=== PATIENT | male | born 1940 | race Caucasian/White ===

== ENCOUNTER → 2018-08-13 | Outpatient (CLI) | payer OTHER ==
[~2018-08-13] MED LIST: ISOVUE-M 300 61% 15ML VIAL (Q9967) As Ordered; LIDOCAINE 1% MDV 20ML VIAL As Ordered
== END ==
LOC: M RADPRO 08:25
DX: M51.36 Other intervertebral disc degeneration, lumbar region (principal); M96.1 Postlaminectomy syndrome, not elsewhere classified; M54.16 Radiculopathy, lumbar region; M54.5 Low back pain
CPT/HCPCS: 62284

== ENCOUNTER 2019-01-09 12:59 | Emergency (ER) | payer OTHER ==
[~2019-01-09] VITALS: Ht 175.3 cm; Wt 86.4 kg
[2019-01-09] MEDS ORDERED: PROP150T PO (13:15)
[2019-01-09] MEDS ORDERED: METF500T13 PO (13:15)
[2019-01-09] MEDS ORDERED: ELIQ5TAB PO (13:15)
[2019-01-09] MEDS ORDERED: PRAV40TA2 PO (13:15)
[2019-01-09] MEDS ORDERED: BENA10TA PO (13:15)
[2019-01-09] MEDS ORDERED: CARV6.25 PO (13:15)
[2019-01-09] MEDS ORDERED: RANI150T14 PO (13:15)
[2019-01-09 13:43] LABS: BASO # 0.1 10^3/uL (0.0-0.2); BASO % 0.7 % (0.0-1.0); EOS # 0.2 10^3/uL (0.0-0.50); EOS % 2.6 % (0.0-3.0); HEMATOCRIT 38.3 % (42.0-52.0); HEMOGLOBIN 12.3 g/dl (13.5-17.5); LYMPH # 1.1 10^3/uL (1.5-4.5); LYMPH % 15.7 % (24.0-44.0); MEAN CORPUSCULAR HEMOGLOBIN 28.3 pg (27.0-33.0); MEAN CORPUSCULAR HGB CONC 32.1 g/dl (32.0-36.5); MEAN CORPUSCULAR VOLUME 88.2 fl (80.0-96.0); MONO # 1.4 10^3/uL (0.0-0.8); MONO % 19.5 % (0.0-5.0); NEUTROPHILS # 4.3 10^3/uL (1.8-7.7); NEUTROPHILS % 61.1 % (36.0-66.0); PLATELET COUNT, AUTOMATED 196 10^3/uL (150-450); RED BLOOD COUNT 4.34 10^6/uL (4.30-6.10)
[2019-01-09 14:13] LABS: ALBUMIN 3.6 GM/DL (3.2-5.2); ALT/SGPT 16 U/L (12-78); BILIRUBIN,TOTAL 0.5 MG/DL (0.2-1.0); BLOOD UREA NITROGEN 15 MG/DL (7-18); CALCIUM LEVEL 9.2 MG/DL (8.8-10.2); CARBON DIOXIDE LEVEL 26 MEQ/L (21-32); CHLORIDE LEVEL 105 MEQ/L (98-107); CREATININE FOR GFR 1.47 MG/DL (0.70-1.30); GLOMERULAR FILTRATION RATE 49.3 (>42); GLUCOSE, FASTING 135 MG/DL (70-100); POTASSIUM SERUM 4.2 MEQ/L (3.5-5.1); SODIUM LEVEL 137 MEQ/L (136-145); TOTAL PROTEIN 6.8 GM/DL (6.4-8.2)
[2019-01-09 15:05] LABS: CK-MB VALUE MASS < 1.0 NG/ML (<3.6); CPK CREATINE PHOSPHOKINASE 40 U/L (39-308); TROPONIN I < 0.02 NG/ML (< 0.10)
--- NOTE | 2019-01-09 15:26 | REP ---
CT brain without contrast: History: Altered mental status. 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 The maxilla is edentulous. Bone window settings demonstrate an intact bony calvarium. Visualized paranasal sinuses are clear. Vascular calcification is noted in the distal carotid arteries bilaterally. Soft tissue window settings, there is moderate diffuse cerebral atrophy. Concordant ventricular enlargement is seen. There is a 1.1 cm focal hyperdensity in the left temporal lobe either in or adjacent to the temporal horn of the left lateral ventricle. This may be an acute hemorrhage. There is no evidence of infarction. No other intracranial hemorrhage is appreciated. There is no evidence of acute infarction. No extra-axial fluid collection, mass or midline shift. Impression: There is a 1.1 cm focal hemorrhage probably immediately adjacent to the temporal horn of the left lateral ventricle in the left temporal lobe consistent with a small parenchymal hemorrhage. Diffuse atrophy and vascular calcification noted. No other abnormality. This report was telephoned to the referring provider in the ED at the time of this dictation. Electronically Signed by Berto Yoder MD 01/09/2019 06:51 P
[2019-01-09 15:45] LABS: INR 1.44; PROTHROMBIN TIME 17.8 SECONDS (12.1-14.4)
[2019-01-09 15:46] LABS: PARTIAL THROMBOPLASTIN TIME 30.4 SECONDS (25.4-37.6)
[2019-01-09] MEDS ORDERED: PROTHROMBIN COMPLEX CONCENTRAT IV ONE (16:00)
[2019-01-09] MEDS ORDERED: [UNRECOGNIZED DRUG - OTHER] IV ONE (16:00)
[2019-01-09] MEDS ORDERED: PROTHROMBIN COMPLEX CONCEN IV ONE (16:00)
--- NOTE | 2019-01-09 16:00 | ECGEPIP ---
Stationary ECG Study [facility] - ED Test Date: 2019-01-09 Pat Name: SUZIE PHELPS Department: Room: - Gender: M Tawer: nakul : 1940 Requested By: Brandan Carvajal Order Number: [id number] Reading MD: Landon Chung Measurements Intervals [place] Rate: 60 P: 14 IN: 199 QRS: 7 QRSD: 107 T: 26 QT: 376 QTc: 378 Interpretive Statements SINUS RHYTHM Comparison tracing not on file Electronically Signed On 01-09-2019 16:00:41 EDT by Landon Chung
[2019-01-09 16:24] VITALS: BP 141/67
== END 2019-01-09 16:26 | disposition short-term general hospital (02) ==
LOC: M ED 12:59
DX: S06.350A Traumatic hemorrhage of left cerebrum without loss of consciousness, initial encounter (principal); R51 Headache; R11.0 Nausea; W01.198A Fall on same level from slipping, tripping and stumbling with subsequent striking against other object, initial encounter; Y92.098 Other place in other non-institutional residence as the place of occurrence of the external cause; I48.91 Unspecified atrial fibrillation; E11.9 Type 2 diabetes mellitus without complications; I10 Essential (primary) hypertension; Z87.442 Personal history of urinary calculi; Z91.048 Other nonmedicinal substance allergy status; Z79.899 Other long term (current) drug therapy; Z79.84 Long term (current) use of oral hypoglycemic drugs; Z79.01 Long term (current) use of anticoagulants
CPT/HCPCS: 70450; 80053; 82550; 82553; 84484; 85025; 85610; 85730; 93005; 93041; 94760; 96365; 99285; C9132

== ENCOUNTER 2020-04-21 13:34 | Emergency (ER) | payer OTHER ==
[~2020-04-21] VITALS: Ht 175.3 cm; Wt 86.5 kg
[~2020-04-21 13:34] MED LIST changes: +BENA10TA PO; +CARV6.25 PO; +ELIQ5TAB PO; -ISOVUE-M 300 61% 15ML VIAL (Q9967) As Ordered; -LIDOCAINE 1% MDV 20ML VIAL As Ordered; +METF500T13 PO; +PRAV40TA2 PO; +PROP150T PO; +RANI150T14 PO
[2020-04-21] MEDS ORDERED: ACETAMINOPHEN 325 MG TAB PO ONE (15:00)
--- NOTE | 2020-04-21 15:33 | REP ---
CT study of the cervical spine without contrast: History: Injury in a fall. Neck pain. No comparison study. Technique: Helical scanning is acquired and overlapping 2 mm high resolution axial images were generated and reviewed at bone and soft tissue window settings. Coronal and sagittal multiplanar re-formations images are generated. CT findings: There is no evidence of cervical spine element fracture. No skull base fracture is seen. Cervical vertebral body heights are preserved. Alignment is normal. Facet joints are normally aligned bilaterally at each cervical level on multiplanar re-formations images. There is no evidence of intraspinal or paraspinal hematoma. No extra vertebral abnormality is seen. The patient is status post ventral discectomy and fusion plating across the C5-6 disc level. There are mild degenerative disc changes at C4-5 and C6-7. Impression: Status post discectomy and fusion plating C5-6. Mild degenerative spondylosis changes. Otherwise negative CT study of the cervical spine without contrast. No fracture seen. Electronically Signed by Berto Yoder MD 04/21/2020 03:24 P
--- NOTE | 2020-04-21 15:50 | REP ---
Clinical: Trauma. Fall. Technique: AP and lateral views of the scapula. Findings: No obvious acute scapular fracture or dislocation is appreciated. Impression: No obvious scapular fracture noted. Suspected anterior right 5th rib fracture Electronically Signed by Ayaz Christianson MD 04/21/2020 03:41 P
--- NOTE | 2020-04-21 15:52 | REP ---
Clinical: Trauma. Fall. Technique: Frontal view of the chest with four views of the right hemithorax. Findings: Fracture along the posterior aspect of the right ninth rib and possible nondisplaced fracture along the anterolateral margin of the right fifth rib noted. No obvious pleural effusion or pneumothorax. Impression: Nondisplaced fractures involving the posterior aspect of the right ninth rib and anterolateral aspect of the right fifth rib. Electronically Signed by Ayaz Christianson MD 04/21/2020 03:43 P
[2020-04-21 16:39] VITALS: BP 129/61
== END 2020-04-21 16:41 | disposition home or self-care (01) ==
LOC: M ED 13:34
DX: S22.41XA Multiple fractures of ribs, right side, initial encounter for closed fracture (principal); W10.8XXA Fall (on) (from) other stairs and steps, initial encounter; E11.9 Type 2 diabetes mellitus without complications; I10 Essential (primary) hypertension; Z79.84 Long term (current) use of oral hypoglycemic drugs; Z98.1 Arthrodesis status; Z91.048 Other nonmedicinal substance allergy status; Z79.899 Other long term (current) drug therapy; I48.91 Unspecified atrial fibrillation; Y92.009 Unspecified place in unspecified non-institutional (private) residence as the place of occurrence of the external cause; Y93.9 Activity, unspecified; Y99.9 Unspecified external cause status

== ENCOUNTER → 2021-02-08 | Outpatient (REF) | payer OTHER ==
[2021-02-08 13:52] LABS: APPEARANCE, URINE CLEAR (CLEAR); BACTERIA, URINE AUTO NEGATIVE (NEGATIVE); BILIRUBIN, URINE AUTO NEGATIVE (NEGATIVE); BLOOD, URINE BLOOD 1+ (NEGATIVE); COLOR, URINE YELLOW (YELLOW); GLUCOSE, URINE (UA) AUTO 1+ mg/dL (NEGATIVE); KETONE, URINE AUTO NEGATIVE (NEGATIVE); LEUKOCYTE ESTERASE, URINE AUTO NEGATIVE (NEGATIVE); MUCUS, URINE SMALL (NEGATIVE); NITRITE, URINE AUTO NEGATIVE (NEGATIVE); PROTEIN, URINE AUTO 1+ mg/dL (NEGATIVE); RBC, URINE AUTO 0 /HPF (0-3); SPECIFIC GRAVITY URINE AUTO 1.014 (1.002-1.035); SQUAMOUS EPITHELIAL CELL UR AU 0 /HPF (0-6); UROBILINOGEN, URINE AUTO 0.2 mg/dL (0.0-2.0); WBC, URINE AUTO 1 /HPF (0-3)
== END ==
LOC: M SMT 12:41
PROVIDERS: ATTEND Nurse Practitioner Family
DX: R31.9 Hematuria, unspecified (principal)
CPT/HCPCS: 81001; 87086; 88108; G0463

== ENCOUNTER → 2022-04-28 | Outpatient (CLI) | payer OTHER ==
[~2022-04-28] MED LIST changes: +BUPIVACAINE HCL 0.5% 10ML VIAL As Ordered ONE; +ISOVUE-300 61% 5ML SYRINGE As Ordered ONE; +LIDOCAINE 1% MDV 20ML VIAL As Ordered ONE; +methylPREDNISolone 80MG/ML SUSP 1ML VIAL (J1040) As Ordered ONE
== END ==
LOC: M RADPRO 10:53
PROVIDERS: ATTEND Orthopaedic Surgery Adult Reconstructive Orthopaedic Surgery
DX: M25.852 Other specified joint disorders, left hip (principal)
CPT/HCPCS: 20610; 76000; J1040; Q9967

== ENCOUNTER 2022-05-10 22:12 | Emergency (ER) | payer OTHER ==
[~2022-05-10] VITALS: Ht 172.7 cm; Wt 79.5 kg
[~2022-05-10 22:12] MED LIST changes: -BUPIVACAINE HCL 0.5% 10ML VIAL As Ordered ONE; -ISOVUE-300 61% 5ML SYRINGE As Ordered ONE; -LIDOCAINE 1% MDV 20ML VIAL As Ordered ONE; -methylPREDNISolone 80MG/ML SUSP 1ML VIAL (J1040) As Ordered ONE
[2022-05-10 23:06] LABS: BASO % 0.2 % (0.0-1.0); EOS # 0.2 10^3/uL (0.0-0.5); EOS % 1.4 % (0.0-3.0); HEMATOCRIT 31.4 % (42.0-52.0); HEMOGLOBIN 9.8 g/dl (13.5-17.5); LYMPH # 1.8 10^3/uL (1.5-5.0); LYMPH % 14.4 % (24.0-44.0); MEAN CORPUSCULAR HEMOGLOBIN 28.2 pg (27.0-33.0); MEAN CORPUSCULAR HGB CONC 31.2 g/dl (32.0-36.5); MEAN CORPUSCULAR VOLUME 90.5 fl (80.0-96.0); MONO # 1.3 10^3/uL (0.0-0.8); MONO % 10.2 % (2.0-8.0); NEUTROPHILS # 9.1 10^3/uL (1.5-8.5); NEUTROPHILS % 73.4 % (36.0-66.0); PLATELET COUNT, AUTOMATED 247 10^3/uL (150-450); RED BLOOD COUNT 3.47 10^6/uL (4.30-6.10); WHITE BLOOD COUNT 12.4 10^3/uL (4.0-10.0)
[2022-05-10 23:50] LABS: ALBUMIN 3.2 GM/DL (3.2-5.2); BILIRUBIN,TOTAL 0.3 MG/DL (0.2-1.0); CALCIUM LEVEL 9.3 MG/DL (8.8-10.2); CREATININE FOR GFR 1.94 MG/DL (0.70-1.30); GLOMERULAR FILTRATION RATE 35.4 (>35); MAGNESIUM LEVEL 1.9 MG/DL (1.8-2.4); POTASSIUM SERUM 3.7 MEQ/L (3.5-5.1); TOTAL PROTEIN 7.1 GM/DL (6.4-8.2)
[2022-05-11] MEDS ORDERED: AZITHROMYCIN 250MG TABLET PO ONE (00:40)
[2022-05-11] MEDS ORDERED: cefTRIAXone SOD 1 GM in D5W MINI-BAG PLUS 50 ML IV ONE (00:40)
[2022-05-11] MEDS ORDERED: AZIT500T5 PO (00:43)
[2022-05-11] MEDS ORDERED: CEFD300C PO (00:43)
[2022-05-11 01:30] VITALS: BP 142/64
== END 2022-05-11 01:43 | disposition home or self-care (01) ==
LOC: EDBD 22:12 → M ED 22:12
DX: J18.9 Pneumonia, unspecified organism (principal); N18.9 Chronic kidney disease, unspecified; B34.8 Other viral infections of unspecified site; E11.9 Type 2 diabetes mellitus without complications; I10 Essential (primary) hypertension; E78.5 Hyperlipidemia, unspecified; Z79.899 Other long term (current) drug therapy; Z79.84 Long term (current) use of oral hypoglycemic drugs; Z91.048 Other nonmedicinal substance allergy status
CPT/HCPCS: 71046; 80053; 81000; 81015; 83605; 83690; 83735; 84145; 84484; 85025; 87040; 87486; 87581; 87633; 87798; 93005; 96365; 99284; J0696

== ENCOUNTER 2022-05-29 14:04 | Inpatient (IN) | payer OTHER ==
[~2022-05-29] VITALS: Ht 172.7 cm; Wt 77.4 kg
[~2022-05-29 14:04] MED LIST changes: +AZIT500T5 PO; +CEFD300C PO
[2022-05-29] MEDS ORDERED: HYDR12.55 PO (14:42)
[2022-05-29] MEDS ORDERED: FERR325T3 PO (14:42)
[2022-05-29] MEDS ORDERED: GABA-282 PO (14:42)
[2022-05-29] MEDS ORDERED: DIPH25CA32 PO (14:42)
[2022-05-29] MEDS ORDERED: CENT50TA PO (14:42)
[2022-05-29] MEDS ORDERED: ASPI81CH33 PO (14:42)
[2022-05-29] MEDS ORDERED: ROSU40TA4 PO (14:42)
[2022-05-29] MEDS ORDERED: CYCL5TAB PO (14:42)
[2022-05-29] MEDS ORDERED: FAMO10TA50 PO (14:42)
[2022-05-29 14:51] LABS: BASO # 0.1 10^3/uL (0.0-0.2); BASO % 0.7 % (0.0-1.0); EOS # 0.3 10^3/uL (0.0-0.5); EOS % 4.6 % (0.0-3.0); HEMOGLOBIN 9.1 g/dl (13.5-17.5); LYMPH # 1.8 10^3/uL (1.5-5.0); LYMPH % 25.8 % (24.0-44.0); MEAN CORPUSCULAR HEMOGLOBIN 27.7 pg (27.0-33.0); MEAN CORPUSCULAR HGB CONC 30.3 g/dl (32.0-36.5); MEAN CORPUSCULAR VOLUME 91.2 fl (80.0-96.0); MONO # 0.9 10^3/uL (0.0-0.8); MONO % 13.3 % (2.0-8.0); NEUTROPHILS # 3.8 10^3/uL (1.5-8.5); NEUTROPHILS % 55.3 % (36.0-66.0); PLATELET COUNT, AUTOMATED 260 10^3/uL (150-450); RED BLOOD COUNT 3.29 10^6/uL (4.30-6.10); WHITE BLOOD COUNT 6.8 10^3/uL (4.0-10.0)
[2022-05-29 15:21] LABS: CALCIUM LEVEL 8.4 MG/DL (8.8-10.2); CREATININE FOR GFR 2.2 MG/DL (0.70-1.30); GLOMERULAR FILTRATION RATE 30.7 (>35); POTASSIUM SERUM 4.5 MEQ/L (3.5-5.1)
[2022-05-29 15:22] LABS: ALBUMIN 3.1 GM/DL (3.2-5.2); BILIRUBIN,TOTAL 0.2 MG/DL (0.2-1.0)
[2022-05-29 16:26] LABS: RBC, URINE NONE SEEN /hpf (0-3)
[2022-05-29 16:27] LABS: BACTERIA, URINE NONE SEEN; HYALINE CAST, URINE NONE SEEN /lpf (0-1); SQUAMOUS EPITHELIAL CELL URINE NONE SEEN /hpf (SMALL AMT)
[2022-05-29] MEDS ORDERED: NS 1,000 ML IV SCH (18:15)
[2022-05-29] MEDS ORDERED: GLUCAGON INJ 1MG VIAL SC PRN (18:20)
[2022-05-29] MEDS ORDERED: GLUCOSE 4GM CHEW TABLET PO PRN (18:20)
[2022-05-29] MEDS ORDERED: DEXTROSE 50% 50 ML SYRINGE IV PRN (18:20)
[2022-05-29 18:21] LABS: INR 0.97; PARTIAL THROMBOPLASTIN TIME 30.9 SECONDS (25.9-37.0); PROTHROMBIN TIME 13.3 SECONDS (12.7-14.5)
[2022-05-29 18:54] LABS: CK-MB VALUE MASS 1.1 NG/ML (<3.6); MB/CK RELATIVE INDEX 3.33 (< OR =4)
[2022-05-29] MEDS ORDERED: METF-838 PO (20:58)
[2022-05-29] MEDS ORDERED: TRIA37.5 PO (20:58)
[2022-05-29] MEDS ORDERED: PROP150T PO (20:58)
[2022-05-29] MEDS ORDERED: CARV3.12 PO (20:58)
[2022-05-29] MEDS ORDERED: ZITHTAB PO (20:58)
[2022-05-29] MEDS ORDERED: HOME MED LIST COMPLETE! XX SCH (21:00)
[2022-05-29] MEDS ORDERED: AMLO2.5T3 PO (21:00)
[2022-05-29] MEDS ORDERED: FLUC150T9 PO (21:00)
[2022-05-29 22:15] VITALS: BP 166/64
[2022-05-29] MEDS: NS 0.45% 1,000 ML IV SCH (22:45)
[2022-05-29] MEDS ORDERED: diphenhydrAMINE 25MG CAP PO PRN (23:45)
[2022-05-30] MEDS ORDERED: PILL CUTTER 1 EACH XX PRN (00:10)
[2022-05-30] MEDS: HEPARIN SOD (PORCINE) 5000UNITS/ML 1ML VIAL/SYRINGE SQ SCH ×3 (05:07→21:05)
[2022-05-30 05:19] VITALS: BP_SYST 121; BP_SYST 129; BP_SYST 145; BP_DIAS 58; BP_DIAS 59; BP_DIAS 65
[2022-05-30 06:26] LABS: HEMATOCRIT 29.7 % (42.0-52.0); HEMOGLOBIN 9.5 g/dl (13.5-17.5); MEAN CORPUSCULAR HEMOGLOBIN 28.6 pg (27.0-33.0); MEAN CORPUSCULAR VOLUME 89.5 fl (80.0-96.0); PLATELET COUNT, AUTOMATED 255 10^3/uL (150-450); RED BLOOD COUNT 3.32 10^6/uL (4.30-6.10); WHITE BLOOD COUNT 5.8 10^3/uL (4.0-10.0)
[2022-05-30 07:06] LABS: BILIRUBIN,TOTAL 0.3 MG/DL (0.2-1.0); CALCIUM LEVEL 8.7 MG/DL (8.8-10.2); CREATININE FOR GFR 1.88 MG/DL (0.70-1.30); GLOMERULAR FILTRATION RATE 36.8 (>35); POTASSIUM SERUM 4.3 MEQ/L (3.5-5.1); TOTAL PROTEIN 5.5 GM/DL (6.4-8.2)
[2022-05-30] MEDS: NS 0.45% 1,000 ML IV SCH ×3 (08:44→17:57)
[2022-05-30] MEDS: LACTOBACILLUS ACIDOPHILUS CAP (BACID) PO SCH ×2 (08:44→17:07)
[2022-05-30] MEDS: ASPIRIN 81 MG CHEW TABLET PO SCH (08:44)
[2022-05-30] MEDS: PROPAFENONE 150 MG TAB PO SCH ×2 (08:44→21:04)
[2022-05-30] MEDS: FERROUS SULFATE 325MG TAB PO SCH ×2 (08:44→21:04)
[2022-05-30] MEDS: FAMOTIDINE 20 MG TAB PO SCH ×2 (08:44→21:04)
[2022-05-30] MEDS ORDERED: ENOXAPARIN 40MG/0.4ML SYRINGE (J1650 PER 10MG) SC SCH (09:00)
[2022-05-30] MEDS: INSULIN LISPRO (NovoLOG) PER UNIT SC SCH ×2 (12:34→16:30)
[2022-05-30 14:00] VITALS: BP 125/60
[2022-05-30 17:00] VITALS: BP_SYST 114; BP_SYST 92; BP_DIAS 57; BP_DIAS 59
[2022-05-30 20:59] VITALS: BP 165/60
[2022-05-30] MEDS ORDERED: GABAPENTIN 300 MG CAP PO SCH (21:00)
[2022-05-30] MEDS ORDERED: INSULIN LISPRO (NovoLOG) PER UNIT SC SCH (21:00)
[2022-05-30] MEDS ORDERED: ROSUVASTATIN 10 MG TAB (CRESTOR) PO SCH (21:00)
[2022-05-31] MEDS: NS 0.45% 1,000 ML IV SCH (03:12)
[2022-05-31] MEDS: HEPARIN SOD (PORCINE) 5000UNITS/ML 1ML VIAL/SYRINGE SQ SCH (05:15)
[2022-05-31 05:23] VITALS: BP 124/57
[2022-05-31 05:56] LABS: HEMATOCRIT 32.1 % (42.0-52.0); HEMOGLOBIN 9.9 g/dl (13.5-17.5); MEAN CORPUSCULAR HEMOGLOBIN 27.5 pg (27.0-33.0); MEAN CORPUSCULAR HGB CONC 30.8 g/dl (32.0-36.5); MEAN CORPUSCULAR VOLUME 89.2 fl (80.0-96.0); PLATELET COUNT, AUTOMATED 262 10^3/uL (150-450); WHITE BLOOD COUNT 5.6 10^3/uL (4.0-10.0)
[2022-05-31 06:34] LABS: BILIRUBIN,TOTAL 0.3 MG/DL (0.2-1.0); CALCIUM LEVEL 8.3 MG/DL (8.8-10.2); CREATININE FOR GFR 1.85 MG/DL (0.70-1.30); GLOMERULAR FILTRATION RATE 37.4 (>35); POTASSIUM SERUM 4.4 MEQ/L (3.5-5.1); TOTAL PROTEIN 5.9 GM/DL (6.4-8.2)
[2022-05-31] MEDS: INSULIN LISPRO (NovoLOG) PER UNIT SC SCH (08:36)
[2022-05-31] MEDS: ASPIRIN 81 MG CHEW TABLET PO SCH (08:36)
[2022-05-31] MEDS: FERROUS SULFATE 325MG TAB PO SCH (08:36)
[2022-05-31] MEDS: LACTOBACILLUS ACIDOPHILUS CAP (BACID) PO SCH (08:36)
[2022-05-31] MEDS: PROPAFENONE 150 MG TAB PO SCH (08:36)
[2022-05-31] MEDS: FAMOTIDINE 20 MG TAB PO SCH (08:36)
[2022-05-31 08:40] VITALS: BP 121/88
== END 2022-05-31 12:00 | disposition home or self-care (01) | DRG 683 ==
LOC: M ED 14:04 → M ED INP 18:55 → M MSPAV 22:04
PROVIDERS: ADMIT Internal Medicine; ATTEND Internal Medicine
DX: N17.9 Acute kidney failure, unspecified (principal); K52.1 Toxic gastroenteritis and colitis; E11.9 Type 2 diabetes mellitus without complications; I48.91 Unspecified atrial fibrillation; I10 Essential (primary) hypertension; E78.5 Hyperlipidemia, unspecified; D50.9 Iron deficiency anemia, unspecified; Z91.81 History of falling; Z86.79 Personal history of other diseases of the circulatory system; R42 Dizziness and giddiness; Z96.641 Presence of right artificial hip joint; Z87.891 Personal history of nicotine dependence; T36.95XA Adverse effect of unspecified systemic antibiotic, initial encounter; I95.1 Orthostatic hypotension; E86.0 Dehydration; M79.89 Other specified soft tissue disorders; Z79.82 Long term (current) use of aspirin; Z79.84 Long term (current) use of oral hypoglycemic drugs; Z79.899 Other long term (current) drug therapy; Z91.048 Other nonmedicinal substance allergy status

== ENCOUNTER 2022-07-12 12:16 | Outpatient (RCR) | payer OTHER ==
[~2022-07-12 12:16] MED LIST changes: +AMLO2.5T3 PO; +ASPI81CH33 PO; +CARV3.12 PO; +CENT50TA PO; +CYCL5TAB PO; +DIPH25CA32 PO; +FAMO10TA50 PO; +FERR325T3 PO; +FLUC150T9 PO; +GABA-282 PO; +HYDR12.55 PO; +METF-838 PO; +ROSU40TA4 PO; +TRIA37.5 PO; +ZITHTAB PO
[2022-08-04] MEDS ORDERED: D200CAP2 PO (09:18)
[2022-08-04] MEDS ORDERED: CVS2500C PO (09:18)
[2022-08-04] MEDS ORDERED: VITA100066 PO (09:18)
== END 2022-07-31 ==
LOC: M PT 12:16
PROVIDERS: ATTEND Orthopaedic Surgery Adult Reconstructive Orthopaedic Surgery
DX: M25.552 Pain in left hip (principal)

== ENCOUNTER → 2022-08-08 | Outpatient (CLI) | payer OTHER ==
[~2022-08-08] MED LIST changes: +CVS2500C PO; +D200CAP2 PO; +VITA100066 PO
== END ==
LOC: M RAD 12:32
PROVIDERS: ATTEND Orthopaedic Surgery Adult Reconstructive Orthopaedic Surgery
DX: M16.12 Unilateral primary osteoarthritis, left hip (principal); M17.0 Bilateral primary osteoarthritis of knee; M16.32 Unilateral osteoarthritis resulting from hip dysplasia, left hip; M25.852 Other specified joint disorders, left hip; Z96.641 Presence of right artificial hip joint

== ENCOUNTER → 2022-08-17 | Outpatient (CLI) | payer OTHER | LOC: M LABSMTC 09:12 | PROVIDERS: ATTEND Anesthesiology | DX: Z01.812 Encounter for preprocedural laboratory examination (principal); Z11.52 Encounter for screening for COVID-19 ==

== ENCOUNTER 2022-08-22 09:24 | Inpatient (IN) | payer OTHER ==
[~2022-08-22] VITALS: Ht 175.3 cm; Wt 82.1 kg
[~2022-08-22 09:24] MED LIST changes: +ACETAMINOPHEN 500 MG TAB PO ONE; +NAPROXEN 250 MG TAB PO ONE; +NS 1,000 ML IV ONE; +PREGABALIN 25 MG CAP (LYRICA) PO ONE; +ROPIVA 125MG/EPINEPH 0.25MG/CLONID 40MCG/KETOR 15MG IN NS 50ML SYRINGE PA ONE; +ceFAZolin SOD 2 GM in IV 1 EA IV ONE; +dexameTHASONE 4 MG/ML 1ML VIAL (J1100 PER 1MG) IV ONE
[2022-08-22] MEDS ORDERED: LR 1,000 ML IV SCH (10:55)
[2022-08-22] MEDS ORDERED: fentaNYL 100 MCG/2 ML INJECTION As Ordered ONE (12:28)
[2022-08-22] MEDS ORDERED: propofoL 500 MG/50 ML VIAL As Ordered ONE ×2 (12:28→14:47)
[2022-08-22] MEDS ORDERED: dexameTHASONE 4 MG/ML 1ML VIAL (J1100 PER 1MG) As Ordered ONE (12:28)
[2022-08-22] MEDS ORDERED: PHENYLEPHRINE 10MG/ML 1ML VIAL As Ordered ONE (12:28)
[2022-08-22] MEDS ORDERED: LIDOCAINE 2% 100MG/5ML SDV (FOR ANES.) As Ordered ONE (12:28)
[2022-08-22] MEDS ORDERED: MIDAZOLAM INJ 2MG/2ML VIAL (J2250 PER 1MG) As Ordered ONE (12:50)
[2022-08-22] MEDS ORDERED: TRANEXAMIC ACID 100 MG/ML 10ML VIAL As Ordered ONE (13:10)
[2022-08-22] MEDS ORDERED: fentaNYL 100 MCG/2 ML INJECTION IV PRN (16:15)
[2022-08-22] MEDS ORDERED: ONDANSETRON 4MG 2ML VIAL IV PRN ×2 (16:15→16:30)
[2022-08-22] MEDS ORDERED: MORPHINE 2 MG/ML 1ML VIAL IV PRN (16:15)
[2022-08-22] MEDS ORDERED: oxyCODONE 5MG TAB PO PRN ×3 (16:15→16:30)
[2022-08-22] MEDS ORDERED: SENNA 8.6 MG TAB (SENOKOT) PO PRN (16:30)
[2022-08-22] MEDS ORDERED: DEXTROSE 50% 50 ML SYRINGE IV PRN (18:00)
[2022-08-22] MEDS ORDERED: GLUCAGON INJ 1MG VIAL SC PRN (18:00)
[2022-08-22] MEDS ORDERED: GLUCOSE 4GM CHEW TABLET PO PRN (18:00)
[2022-08-22 18:15] VITALS: BP 172/69
[2022-08-22] MEDS: ACETAMINOPHEN TAB 650MG DOSE (2X325MG) PO SCH ×2 (18:50→23:25)
[2022-08-22 18:51] LABS: BASO % 0.4 % (0.0-1.0); EOS % 0.6 % (0.0-3.0); HEMATOCRIT 35.4 % (42.0-52.0); HEMOGLOBIN 10.8 g/dl (13.5-17.5); LYMPH # 0.8 10^3/uL (1.5-5.0); LYMPH % 10.5 % (24.0-44.0); MEAN CORPUSCULAR HEMOGLOBIN 27.9 pg (27.0-33.0); MEAN CORPUSCULAR HGB CONC 30.5 g/dl (32.0-36.5); MEAN CORPUSCULAR VOLUME 91.5 fl (80.0-96.0); MONO # 0.2 10^3/uL (0.0-0.8); MONO % 3.2 % (2.0-8.0); NEUTROPHILS # 6.2 10^3/uL (1.5-8.5); NEUTROPHILS % 84.7 % (36.0-66.0); PLATELET COUNT, AUTOMATED 223 10^3/uL (150-450); RED BLOOD COUNT 3.87 10^6/uL (4.30-6.10); WHITE BLOOD COUNT 7.3 10^3/uL (4.0-10.0)
[2022-08-22 19:36] LABS: CALCIUM LEVEL 8.7 MG/DL (8.3-10.6); CREATININE FOR GFR 1.77 MG/DL (0.70-1.30); GLOMERULAR FILTRATION RATE 39.4 (>35); POTASSIUM SERUM 4.8 MMOL/L (3.5-5.1)
[2022-08-22 20:30] VITALS: BP 132/73
[2022-08-22] MEDS: ceFAZolin SOD 2 GM in IV 1 EA IV SCH (20:50)
[2022-08-22] MEDS: PROPAFENONE 150 MG TAB PO SCH (20:51)
[2022-08-22] MEDS: DOCUSATE SODIUM 100MG CAPSULE PO SCH (20:51)
[2022-08-22] MEDS: INSULIN LISPRO (NovoLOG) PER UNIT SC SCH (20:51)
[2022-08-22] MEDS: ROSUVASTATIN 10 MG TAB (CRESTOR) PO SCH (20:52)
[2022-08-22] MEDS: GABAPENTIN 300 MG CAP PO SCH (20:52)
[2022-08-22] MEDS: FAMOTIDINE 20 MG TAB PO SCH (20:52)
[2022-08-22] MEDS: LR 1,000 ML IV SCH (20:52)
[2022-08-22] MEDS: CARVedilol 3.125 MG TAB PO SCH (20:54)
[2022-08-22 21:00] VITALS: BP 130/72
[2022-08-22] MEDS ORDERED: POLYVINYL ALCOHOL OPHTH SOLN 15 ML(LIQUITEARS) OU PRN (21:45)
[2022-08-22 22:00] VITALS: BP 127/60
[2022-08-22 23:00] VITALS: BP 127/68
[2022-08-22] MEDS: ASPIRIN 81MG ENTERIC TABLET PO SCH (23:26)
[2022-08-22] MEDS: NAPROXEN 250 MG TAB PO SCH (23:26)
[2022-08-23] VITALS (7 sets, daily range): BP systolic 119–150; BP diastolic 42–63
[2022-08-23] MEDS: ACETAMINOPHEN TAB 650MG DOSE (2X325MG) PO SCH ×3 (05:26→17:43)
[2022-08-23] MEDS: LR 1,000 ML IV SCH (05:27)
[2022-08-23] MEDS: ceFAZolin SOD 2 GM in IV 1 EA IV SCH (05:27)
[2022-08-23 06:18] LABS: HEMATOCRIT 28.6 % (42.0-52.0); MEAN CORPUSCULAR HEMOGLOBIN 28.5 pg (27.0-33.0); MEAN CORPUSCULAR HGB CONC 31.5 g/dl (32.0-36.5); MEAN CORPUSCULAR VOLUME 90.5 fl (80.0-96.0); PLATELET COUNT, AUTOMATED 214 10^3/uL (150-450); RED BLOOD COUNT 3.16 10^6/uL (4.30-6.10); WHITE BLOOD COUNT 11.1 10^3/uL (4.0-10.0)
[2022-08-23 06:29] LABS: CALCIUM LEVEL 8.2 MG/DL (8.3-10.6); CREATININE FOR GFR 1.82 MG/DL (0.70-1.30); GLOMERULAR FILTRATION RATE 38.2 (>35); POTASSIUM SERUM 4.8 MMOL/L (3.5-5.1)
[2022-08-23] MEDS: INSULIN LISPRO (NovoLOG) PER UNIT SC SCH ×4 (08:31→21:00)
[2022-08-23] MEDS: PROPAFENONE 150 MG TAB PO SCH ×2 (08:31→21:06)
[2022-08-23] MEDS: ASCORBIC ACID 500 MG TAB PO SCH (08:32)
[2022-08-23] MEDS: ASPIRIN 81MG ENTERIC TABLET PO SCH ×2 (08:32→21:06)
[2022-08-23] MEDS: NAPROXEN 250 MG TAB PO SCH (08:32)
[2022-08-23] MEDS: FAMOTIDINE 20 MG TAB PO SCH ×2 (08:35→21:06)
[2022-08-23] MEDS: VITAMIN D 1,000 INTERNATIONAL UNITS TABLET PO SCH (08:35)
[2022-08-23] MEDS: CARVedilol 3.125 MG TAB PO SCH ×2 (08:35→21:06)
[2022-08-23] MEDS: DOCUSATE SODIUM 100MG CAPSULE PO SCH ×2 (08:35→21:00)
[2022-08-23] MEDS: FERROUS SULFATE 325MG TAB PO SCH (08:35)
[2022-08-23] MEDS ORDERED: LR 1,000 ML IV SCH (10:09)
[2022-08-23] MEDS: traMADol 50 MG TAB PO PRN ×2 (14:45→21:06)
[2022-08-23] MEDS: ROSUVASTATIN 10 MG TAB (CRESTOR) PO SCH (21:06)
[2022-08-23] MEDS: GABAPENTIN 300 MG CAP PO SCH (21:07)
[2022-08-24] MEDS: ACETAMINOPHEN TAB 650MG DOSE (2X325MG) PO SCH ×4 (00:15→18:03)
[2022-08-24 01:39] VITALS: BP 131/51
[2022-08-24] MEDS: traMADol 50 MG TAB PO PRN ×2 (01:59→07:48)
[2022-08-24 05:00] VITALS: BP 128/50
[2022-08-24 05:49] LABS: HEMOGLOBIN 7.8 g/dl (13.5-17.5); MEAN CORPUSCULAR HEMOGLOBIN 28.5 pg (27.0-33.0); MEAN CORPUSCULAR HGB CONC 31.2 g/dl (32.0-36.5); MEAN CORPUSCULAR VOLUME 91.2 fl (80.0-96.0); PLATELET COUNT, AUTOMATED 163 10^3/uL (150-450); RED BLOOD COUNT 2.74 10^6/uL (4.30-6.10); WHITE BLOOD COUNT 6.4 10^3/uL (4.0-10.0)
[2022-08-24 06:38] LABS: CALCIUM LEVEL 8.1 MG/DL (8.3-10.6); CREATININE FOR GFR 2.11 MG/DL (0.70-1.30); GLOMERULAR FILTRATION RATE 32.2 (>35); POTASSIUM SERUM 4.4 MMOL/L (3.5-5.1)
[2022-08-24] MEDS: INSULIN LISPRO (NovoLOG) PER UNIT SC SCH ×4 (07:47→21:00)
[2022-08-24] MEDS: DOCUSATE SODIUM 100MG CAPSULE PO SCH ×2 (07:47→20:57)
[2022-08-24] MEDS: VITAMIN D 1,000 INTERNATIONAL UNITS TABLET PO SCH (07:47)
[2022-08-24] MEDS: FAMOTIDINE 20 MG TAB PO SCH ×2 (07:48→20:57)
[2022-08-24] MEDS: ASCORBIC ACID 500 MG TAB PO SCH (07:48)
[2022-08-24] MEDS: ASPIRIN 81MG ENTERIC TABLET PO SCH ×2 (07:48→20:57)
[2022-08-24] MEDS: PROPAFENONE 150 MG TAB PO SCH ×2 (07:48→20:56)
[2022-08-24] MEDS: FERROUS SULFATE 325MG TAB PO SCH (07:48)
[2022-08-24] MEDS: CARVedilol 3.125 MG TAB PO SCH ×2 (09:00→20:56)
[2022-08-24 15:00] VITALS: BP 156/51
[2022-08-24 18:11] LABS: HEMATOCRIT 25.9 % (42.0-52.0); HEMOGLOBIN 8.2 g/dl (13.5-17.5)
[2022-08-24 18:40] LABS: FERRITIN 43.6 NG/ML (10.5-307.3); IRON (FE) 5 UG/DL (65-175); PERCENT SATURATION 1.8 % (19.7-50.0); TOTAL IRON BINDING CAPACITY 275 UG/DL (250-425)
[2022-08-24 20:30] VITALS: BP 160/62
[2022-08-24] MEDS: ROSUVASTATIN 10 MG TAB (CRESTOR) PO SCH (20:55)
[2022-08-24] MEDS: GABAPENTIN 300 MG CAP PO SCH (20:56)
[2022-08-24 21:10] VITALS: BP 160/62
[2022-08-24 22:00] LABS: FOLATE > 24.00 NG/ML (>5.4); VITAMIN B12 LEVEL 1483 PG/ML (211-911)
[2022-08-24 22:15] VITALS: BP 145/79
[2022-08-24] MEDS ORDERED: MAALOX 30 ML SUSP *UDC PO ONE (22:40)
[2022-08-24] MEDS ORDERED: LABETALOL 100MG TAB PO ONE (22:40)
[2022-08-24] MEDS ORDERED: PILL CUTTER 1 EACH XX PRN (22:45)
[2022-08-24 22:53] LABS: CK-MB VALUE MASS 5.7 NG/ML (<3.6); MB/CK RELATIVE INDEX 0.74 (< OR =4)
[2022-08-24 23:14] LABS: HEMATOCRIT 26.5 % (42.0-52.0); HEMOGLOBIN 8.4 g/dl (13.5-17.5)
[2022-08-25] MEDS: ACETAMINOPHEN TAB 650MG DOSE (2X325MG) PO SCH ×3 (00:31→11:51)
[2022-08-25 00:35] VITALS: BP 112/63
[2022-08-25 06:16] LABS: HEMATOCRIT 26.6 % (42.0-52.0); HEMOGLOBIN 8.3 g/dl (13.5-17.5); MEAN CORPUSCULAR HEMOGLOBIN 28.6 pg (27.0-33.0); MEAN CORPUSCULAR HGB CONC 31.2 g/dl (32.0-36.5); MEAN CORPUSCULAR VOLUME 91.7 fl (80.0-96.0); PLATELET COUNT, AUTOMATED 190 10^3/uL (150-450); WHITE BLOOD COUNT 7.1 10^3/uL (4.0-10.0)
[2022-08-25 06:43] VITALS: BP 112/72
[2022-08-25 06:46] LABS: CALCIUM LEVEL 8.4 MG/DL (8.3-10.6); CREATININE FOR GFR 1.92 MG/DL (0.70-1.30); GLOMERULAR FILTRATION RATE 35.9 (>35); POTASSIUM SERUM 4.3 MMOL/L (3.5-5.1)
[2022-08-25] MEDS: INSULIN LISPRO (NovoLOG) PER UNIT SC SCH ×2 (07:14→11:51)
[2022-08-25] MEDS ORDERED: IRON SUCROSE 100MG 5ML VIAL (J1756 PER 1MG) IV ONE (07:50)
[2022-08-25] MEDS: DOCUSATE SODIUM 100MG CAPSULE PO SCH (08:50)
[2022-08-25] MEDS: ASPIRIN 81MG ENTERIC TABLET PO SCH (08:50)
[2022-08-25] MEDS: FERROUS SULFATE 325MG TAB PO SCH (08:50)
[2022-08-25] MEDS: FAMOTIDINE 20 MG TAB PO SCH (08:50)
[2022-08-25] MEDS: PROPAFENONE 150 MG TAB PO SCH (08:50)
[2022-08-25] MEDS: ASCORBIC ACID 500 MG TAB PO SCH (08:50)
[2022-08-25] MEDS: VITAMIN D 1,000 INTERNATIONAL UNITS TABLET PO SCH (08:50)
[2022-08-25 08:51] VITALS: BP 112/72
[2022-08-25] MEDS: CARVedilol 3.125 MG TAB PO SCH (08:51)
[2022-08-25] MEDS ORDERED: OMEPRAZOLE 20MG CAP PO SCH (09:00)
[2022-08-25] MEDS ORDERED: IRON SUCROSE 500 MG in NS 250 ML OVER 4 HRS IV ONE (11:00)
[2022-08-25 14:00] VITALS: BP 127/52
[2022-08-25] MEDS ORDERED: ASPI81CH33 PO (14:49)
[2022-08-25] MEDS ORDERED: FARX1TAB3 PO (14:49)
[2022-08-25] MEDS ORDERED: MIRA3350 PO (14:49)
[2022-08-25] MEDS ORDERED: FERR1TAB8 PO (14:49)
[2022-08-25] MEDS ORDERED: COLA100C5 PO (14:49)
[2022-08-25] MEDS ORDERED: PERC5TAB12 PO (14:49)
== END 2022-08-25 15:40 | disposition home health service (06) | DRG 470 ==
LOC: M SDC 09:24 → M MSPAV 09:25 → M MS5PR 18:00 → M MSPAV 19:19 → OBSVTOIN 08-24 14:12
PROVIDERS: ADMIT Internal Medicine; ATTEND Internal Medicine
PROC: 8E0Y0CZ Robotic Assisted Procedure of Lower Extremity, Open Approach (ICD-10-PCS; 2022-08-22)
PROC: 0SRB0JA Replacement of Left Hip Joint with Synthetic Substitute, Uncemented, Open Approach (ICD-10-PCS; principal; 2022-08-22 11:30)
DX: M16.12 Unilateral primary osteoarthritis, left hip (principal); E11.22 Type 2 diabetes mellitus with diabetic chronic kidney disease; I48.0 Paroxysmal atrial fibrillation; R29.6 Repeated falls; I12.9 Hypertensive chronic kidney disease with stage 1 through stage 4 chronic kidney disease, or unspecified chronic kidney disease; E78.5 Hyperlipidemia, unspecified; D50.9 Iron deficiency anemia, unspecified; Z96.641 Presence of right artificial hip joint; Z87.891 Personal history of nicotine dependence; N18.30 Chronic kidney disease, stage 3 unspecified; Z79.82 Long term (current) use of aspirin; Z79.84 Long term (current) use of oral hypoglycemic drugs; Z79.899 Other long term (current) drug therapy; Z91.048 Other nonmedicinal substance allergy status

== ENCOUNTER → 2022-08-29 | Outpatient (REF) | payer OTHER ==
[~2022-08-29] MED LIST changes: -ACETAMINOPHEN 500 MG TAB PO ONE; +COLA100C5 PO; +FARX1TAB3 PO; +FERR1TAB8 PO; +MIRA3350 PO; -NAPROXEN 250 MG TAB PO ONE; -NS 1,000 ML IV ONE; +PERC5TAB12 PO; -PREGABALIN 25 MG CAP (LYRICA) PO ONE; -ROPIVA 125MG/EPINEPH 0.25MG/CLONID 40MCG/KETOR 15MG IN NS 50ML SYRINGE PA ONE; -ceFAZolin SOD 2 GM in IV 1 EA IV ONE; -dexameTHASONE 4 MG/ML 1ML VIAL (J1100 PER 1MG) IV ONE
[2022-08-29 13:01] LABS: BASO % 0.6 % (0.0-1.0); EOS # 0.5 10^3/uL (0.0-0.5); EOS % 7.4 % (0.0-3.0); HEMATOCRIT 26.6 % (42.0-52.0); HEMOGLOBIN 8.1 g/dl (13.5-17.5); LYMPH # 1.4 10^3/uL (1.5-5.0); LYMPH % 19.7 % (24.0-44.0); MEAN CORPUSCULAR HEMOGLOBIN 28.4 pg (27.0-33.0); MEAN CORPUSCULAR HGB CONC 30.5 g/dl (32.0-36.5); MEAN CORPUSCULAR VOLUME 93.3 fl (80.0-96.0); MONO # 1.1 10^3/uL (0.0-0.8); MONO % 15.2 % (2.0-8.0); NEUTROPHILS # 4.1 10^3/uL (1.5-8.5); NEUTROPHILS % 56.1 % (36.0-66.0); PLATELET COUNT, AUTOMATED 278 10^3/uL (150-450); RED BLOOD COUNT 2.85 10^6/uL (4.30-6.10); WHITE BLOOD COUNT 7.3 10^3/uL (4.0-10.0)
== END ==
LOC: M SHH 12:45
PROVIDERS: ATTEND Orthopaedic Surgery Adult Reconstructive Orthopaedic Surgery
DX: Z96.642 Presence of left artificial hip joint (principal)

== ENCOUNTER → 2022-09-04 | Outpatient (CLI) | payer OTHER | LOC: M SOG 07:49 | PROVIDERS: ATTEND Orthopaedic Surgery Adult Reconstructive Orthopaedic Surgery | DX: M16.12 Unilateral primary osteoarthritis, left hip (principal); Z96.642 Presence of left artificial hip joint ==

== ENCOUNTER 2022-12-07 18:29 | Emergency (ER) | payer OTHER ==
[~2022-12-07] VITALS: Ht 175.3 cm; Wt 81.8 kg
[~2022-12-07 18:29] MED LIST changes: +DIPH-435 PO; -DIPH25CA32 PO
[2022-12-07] MEDS ORDERED: CARVedilol 3.125 MG TAB PO STA (19:43)
[2022-12-07 19:48] VITALS: BP 191/86
[2022-12-07 20:08] VITALS: O2SAT 94
[2022-12-07] MEDS ORDERED: IBUPROFEN 600MG TAB PO ONE (20:20)
[2022-12-07 21:10] VITALS: BP 176/76
== END 2022-12-07 21:23 | disposition home or self-care (01) ==
LOC: EDSEX 18:29 → EDBD 18:29 → M ED 18:29
DX: S70.02XA Contusion of left hip, initial encounter (principal); W19.XXXA Unspecified fall, initial encounter; Y92.89 Other specified places as the place of occurrence of the external cause; Y93.89 Activity, other specified; Y99.8 Other external cause status; I48.91 Unspecified atrial fibrillation; I10 Essential (primary) hypertension; E11.9 Type 2 diabetes mellitus without complications; Z87.442 Personal history of urinary calculi; Z88.8 Allergy status to other drugs, medicaments and biological substances; Z79.899 Other long term (current) drug therapy; Z79.82 Long term (current) use of aspirin; Z79.84 Long term (current) use of oral hypoglycemic drugs

== ENCOUNTER → 2023-01-31 | Outpatient (CLI) | payer OTHER | LOC: M RAD 10:18 | PROVIDERS: ATTEND Internal Medicine | DX: N18.30 Chronic kidney disease, stage 3 unspecified (principal) ==

== ENCOUNTER → 2023-08-31 | Outpatient (CLI) | payer OTHER | LOC: M SOG 07:51 | PROVIDERS: ATTEND Orthopaedic Surgery | DX: M54.50 Low back pain, unspecified (principal); Z96.642 Presence of left artificial hip joint ==

== ENCOUNTER → 2023-11-07 | Outpatient (CLI) | payer OTHER | LOC: M RAD 08:37 | PROVIDERS: ATTEND Internal Medicine Nephrology | DX: N18.4 Chronic kidney disease, stage 4 (severe) (principal); I70.1 Atherosclerosis of renal artery ==

== ENCOUNTER 2023-12-19 08:37 | Emergency (ER) | payer MEDICAID, OTHER ==
[~2023-12-19] VITALS: Ht 175.3 cm; Wt 81.8 kg
[2023-12-19] MEDS ORDERED: AMLO1TAB25 PO (09:09)
[2023-12-19] MEDS ORDERED: B-12100020 PO (09:09)
[2023-12-19] MEDS ORDERED: GLIM1TAB4 PO (09:09)
[2023-12-19] MEDS ORDERED: CARV12.5 PO (09:09)
[2023-12-19] MEDS ORDERED: LOPE1CAP5 PO (09:09)
[2023-12-19] MEDS ORDERED: JARD1TAB3 PO (09:09)
[2023-12-19 09:29] LABS: BASO % 0.3 % (0.0-1.0); EOS # 0.1 10^3/uL (0.0-0.5); EOS % 1.2 % (0.0-3.0); HEMATOCRIT 41.5 % (42.0-52.0); LYMPH % 9.5 % (24.0-44.0); MEAN CORPUSCULAR HGB CONC 31.3 g/dl (32.0-36.5); MEAN CORPUSCULAR VOLUME 92.6 fl (80.0-96.0); MONO # 1.5 10^3/uL (0.0-0.8); MONO % 13.6 % (2.0-8.0); NEUTROPHILS # 8.2 10^3/uL (1.5-8.5); NEUTROPHILS % 75.1 % (36.0-66.0); PLATELET COUNT, AUTOMATED 207 10^3/uL (150-450); RED BLOOD COUNT 4.48 10^6/uL (4.30-6.10); WHITE BLOOD COUNT 10.9 10^3/uL (4.0-10.0)
[2023-12-19] MEDS: BOOSTRIX VACCINE (TETANUS/DIPHTH/ACEL. PERTUSSIS) 0.5ML SYR IM.IMMUN ONE (09:29)
[2023-12-19 09:48] LABS: INR 1.04; PROTHROMBIN TIME 13.3 SECONDS (12.5-14.5)
[2023-12-19 09:59] LABS: CALCIUM LEVEL 9.1 MG/DL (8.3-10.6); CREATININE FOR GFR 2.79 MG/DL (0.70-1.30); GLOMERULAR FILTRATION RATE 23.2 (>35); MAGNESIUM LEVEL 2.6 MG/DL (1.8-2.4); POTASSIUM SERUM 4.9 MMOL/L (3.5-5.1)
[2023-12-19 10:02] LABS: THYROID STIMULATING HORMONE 0.528 uIU/ML (0.55-4.78)
[2023-12-19] MEDS: NS 500 ML IV ONE (10:23)
[2023-12-19] MEDS ORDERED: MED REC IN PROGRESS XX SCH (11:05)
[2023-12-19] MEDS ORDERED: ASPI81CH33 PO (11:46)
[2023-12-19] MEDS ORDERED: FAMO20TA PO (11:46)
[2023-12-19] MEDS ORDERED: HOME MED LIST COMPLETE! XX SCH (11:50)
[2023-12-19 13:35] LABS: CALCIUM LEVEL 8.5 MG/DL (8.3-10.6); CREATININE FOR GFR 2.85 MG/DL (0.70-1.30); GLOMERULAR FILTRATION RATE 22.7 (>35); POTASSIUM SERUM 4.8 MMOL/L (3.5-5.1)
[2023-12-19 14:00] VITALS: BP 115/84
[2023-12-19 14:15] VITALS: TEMP 99; O2SAT 96
== END 2023-12-19 14:43 | disposition left against medical advice (07) ==
LOC: M ED 08:37 → EDBD 08:37 → M ED 14:43
DX: R42 Dizziness and giddiness (principal); S61.511A Laceration without foreign body of right wrist, initial encounter; W21.9XXA Striking against or struck by unspecified sports equipment, initial encounter; Y92.009 Unspecified place in unspecified non-institutional (private) residence as the place of occurrence of the external cause; Y93.9 Activity, unspecified; Y99.9 Unspecified external cause status; Z53.9 Procedure and treatment not carried out, unspecified reason; I48.91 Unspecified atrial fibrillation; E11.9 Type 2 diabetes mellitus without complications; I10 Essential (primary) hypertension; D50.9 Iron deficiency anemia, unspecified; R29.6 Repeated falls; Z87.891 Personal history of nicotine dependence; Z79.899 Other long term (current) drug therapy; Z91.89 Other specified personal risk factors, not elsewhere classified

== ENCOUNTER 2024-04-05 12:00 | Emergency (ER) | payer OTHER ==
[~2024-04-05] VITALS: Ht 175.3 cm; Wt 76.3 kg
[~2024-04-05 12:00] MED LIST changes: +AMLO1TAB25 PO; +B-12100020 PO; +CARV12.5 PO; +FAMO20TA PO; +GLIM1TAB84 PO; +JARD1TAB3 PO; +LOPE1CAP5 PO; -ROSU40TA4 PO; +ROSU40TA63 PO
[2024-04-05 13:26] LABS: BASO # 0.1 10^3/uL (0.0-0.2); BASO % 1.1 % (0.0-1.0); EOS # 0.2 10^3/uL (0.0-0.5); EOS % 2.7 % (0.0-3.0); HEMATOCRIT 42.1 % (42.0-52.0); HEMOGLOBIN 13.5 g/dl (13.5-17.5); LYMPH # 1.6 10^3/uL (1.5-5.0); LYMPH % 21.4 % (24.0-44.0); MEAN CORPUSCULAR HGB CONC 32.1 g/dl (32.0-36.5); MEAN CORPUSCULAR VOLUME 90.5 fl (80.0-96.0); MONO # 0.8 10^3/uL (0.0-0.8); MONO % 11.3 % (2.0-8.0); NEUTROPHILS # 4.6 10^3/uL (1.5-8.5); NEUTROPHILS % 63.2 % (36.0-66.0); PLATELET COUNT, AUTOMATED 246 10^3/uL (150-450); RED BLOOD COUNT 4.65 10^6/uL (4.30-6.10); WHITE BLOOD COUNT 7.3 10^3/uL (4.0-10.0)
[2024-04-05 13:35] LABS: THYROID STIMULATING HORMONE 1.534 uIU/ML (0.55-4.78); THYROXINE (T4) 10.9 UG/DL (4.5-10.9)
[2024-04-05 13:47] LABS: CK-MB VALUE MASS < 1.0 NG/ML (<3.6)
[2024-04-05 13:48] LABS: ALBUMIN 3.8 G/DL (3.2-5.2); ALKALINE PHOSPHATASE 72 U/L (46-116); ALT/SGPT 12 U/L (7.0-40); AST/SGOT < 8 U/L (<34); BILIRUBIN,DIRECT 0.3 MG/DL (<0.4); BILIRUBIN,TOTAL 0.8 MG/DL (0.3-1.2); BLOOD UREA NITROGEN 31 MG/DL (9-23); CALCIUM LEVEL 9.7 MG/DL (8.3-10.6); CARBON DIOXIDE LEVEL 25 MMOL/L (20-31); CHLORIDE LEVEL 108 MMOL/L (98-107); CPK CREATINE PHOSPHOKINASE 28 U/L (46-171); CREATININE FOR GFR 1.69 MG/DL (0.70-1.30); GLOMERULAR FILTRATION RATE 41.5 (>35); GLUCOSE, FASTING 245 MG/DL (74-106); MB/CK RELATIVE INDEX 3.57 (< OR =4); POTASSIUM SERUM 4.2 MMOL/L (3.5-5.1); SODIUM LEVEL 142 MMOL/L (136-145); TOTAL PROTEIN 6.7 G/DL (5.7-8.2)
[2024-04-05 14:12] LABS: CK-MB VALUE MASS < 1.0 NG/ML (<3.6)
[2024-04-05 14:19] LABS: CPK CREATINE PHOSPHOKINASE 36 U/L (46-171); MB/CK RELATIVE INDEX 2.77 (< OR =4)
[2024-04-05] MEDS: ASPIRIN 81MG CHEW TABLET PO ONE (14:22)
[2024-04-05 17:01] VITALS: O2SAT 99
[2024-04-05 17:22] VITALS: BP 155/69; TEMP 97.4; O2SAT 98
== END 2024-04-05 17:38 | disposition home or self-care (01) ==
LOC: M ED 12:00 → EDBD 12:00 → M ED 17:38
DX: R07.9 Chest pain, unspecified (principal); I48.91 Unspecified atrial fibrillation; E11.9 Type 2 diabetes mellitus without complications; I10 Essential (primary) hypertension; E78.5 Hyperlipidemia, unspecified; Z87.442 Personal history of urinary calculi

== ENCOUNTER 2024-05-06 18:12 | Emergency (ER) | payer OTHER ==
[~2024-05-06] VITALS: Ht 175.3 cm; Wt 81.8 kg
[2024-05-06 19:37] LABS: VENOUS BASE EXCESS -0.4 (-2.0-2.0); VENOUS O2 SATURATION 53.4 % (60.0-80.0); VENOUS PARTIAL PRESSURE CO2 38.8 mmHg (38.0-50.0); VENOUS PARTIAL PRESSURE O2 28.3 mmHg (30.0-50.0); VENOUS STANDARD HCO3 23.1 MMOL/L; VENOUS TOTAL CO2 25.2 MMOL/L (24.0-28.0)
[2024-05-06 19:54] LABS: BASO # 0.1 10^3/uL (0.0-0.2); BASO % 0.9 % (0.0-1.0); EOS # 0.5 10^3/uL (0.0-0.5); EOS % 7.1 % (0.0-3.0); HEMATOCRIT 42.8 % (42.0-52.0); HEMOGLOBIN 13.4 g/dl (13.5-17.5); LYMPH # 1.7 10^3/uL (1.5-5.0); LYMPH % 26.7 % (24.0-44.0); MEAN CORPUSCULAR HEMOGLOBIN 28.6 pg (27.0-33.0); MEAN CORPUSCULAR HGB CONC 31.3 g/dl (32.0-36.5); MEAN CORPUSCULAR VOLUME 91.5 fl (80.0-96.0); MONO # 0.9 10^3/uL (0.0-0.8); MONO % 13.3 % (2.0-8.0); NEUTROPHILS # 3.4 10^3/uL (1.5-8.5); NEUTROPHILS % 51.7 % (36.0-66.0); PLATELET COUNT, AUTOMATED 226 10^3/uL (150-450); RED BLOOD COUNT 4.68 10^6/uL (4.30-6.10); WHITE BLOOD COUNT 6.5 10^3/uL (4.0-10.0)
[2024-05-06 20:25] LABS: CK-MB VALUE MASS < 1.0 NG/ML (<3.6)
[2024-05-06 20:29] LABS: ALBUMIN 3.8 G/DL (3.2-5.2); ALKALINE PHOSPHATASE 77 U/L (46-116); ALT/SGPT 14 U/L (7.0-40); AST/SGOT 14 U/L (<34); BILIRUBIN,DIRECT 0.2 MG/DL (<0.4); BILIRUBIN,TOTAL 0.4 MG/DL (0.3-1.2); BLOOD UREA NITROGEN 25 MG/DL (9-23); CALCIUM LEVEL 9.3 MG/DL (8.3-10.6); CARBON DIOXIDE LEVEL 25 MMOL/L (20-31); CHLORIDE LEVEL 110 MMOL/L (98-107); CREATININE FOR GFR 1.66 MG/DL (0.70-1.30); GLOMERULAR FILTRATION RATE 42.2 (>35); GLUCOSE, FASTING 112 MG/DL (74-106); POTASSIUM SERUM 4.2 MMOL/L (3.5-5.1); SODIUM LEVEL 142 MMOL/L (136-145); TOTAL PROTEIN 6.8 G/DL (5.7-8.2)
[2024-05-06 20:30] LABS: CPK CREATINE PHOSPHOKINASE 48 U/L (46-171); MB/CK RELATIVE INDEX 2.08 (< OR =4)
[2024-05-06 21:15] LABS: CK-MB VALUE MASS < 1.0 NG/ML (<3.6)
[2024-05-06 21:17] LABS: CPK CREATINE PHOSPHOKINASE 26 U/L (46-171); MB/CK RELATIVE INDEX 3.84 (< OR =4)
[2024-05-06 23:14] VITALS: O2SAT 97
[2024-05-06 23:30] VITALS: BP 147/81; TEMP 98; O2SAT 98
== END 2024-05-06 23:46 | disposition home or self-care (01) ==
LOC: M ED 18:12 → EDBD 18:12 → M ED 23:46
DX: R42 Dizziness and giddiness (principal); I48.91 Unspecified atrial fibrillation; E11.9 Type 2 diabetes mellitus without complications; I10 Essential (primary) hypertension; Z87.442 Personal history of urinary calculi; Z79.84 Long term (current) use of oral hypoglycemic drugs; Z79.82 Long term (current) use of aspirin; Z79.899 Other long term (current) drug therapy; Z91.89 Other specified personal risk factors, not elsewhere classified

== ENCOUNTER → 2025-05-13 | Outpatient (CLI) | payer OTHER ==
[~2025-05-13] MED LIST changes: -CYCL5TAB PO; +CYCL5TAB4 PO; +GABA-1172 PO; -GABA-282 PO; -PRAV40TA2 PO; +PRAV40TA85 PO; -ROSU40TA63 PO; +ROSU40TA81 PO
== END ==
LOC: M RAD 07:16
PROVIDERS: ATTEND Orthopaedic Surgery
DX: M50.221 Other cervical disc displacement at C4-C5 level (principal); Z98.1 Arthrodesis status; M48.02 Spinal stenosis, cervical region

== ENCOUNTER 2025-07-24 04:48 | Observation (INO) | payer OTHER ==
[~2025-07-24] VITALS: Ht 175.3 cm; Wt 79.9 kg
[~2025-07-24 04:48] MED LIST changes: -PROP150T PO; +PROP1TAB30 PO
[2025-07-24] MEDS ORDERED: MORPHINE 4 MG/ML 1 ML VIAL As Ordered ONE (05:10)
[2025-07-24] MEDS: MORPHINE 4 MG/ML 1 ML VIAL IV PRN ×2 (05:13→19:57)
[2025-07-24] MEDS ORDERED: ONDANSETRON 4MG/2ML VIAL As Ordered ONE (05:14)
[2025-07-24] MEDS: ONDANSETRON 4MG/2ML VIAL IV ONE (05:16)
[2025-07-24 07:25] LABS: BASO # 0.1 10^3/uL (0.0-0.2); BASO % 0.7 % (0.0-1.0); EOS # 0.4 10^3/uL (0.0-0.5); EOS % 4.3 % (0.0-3.0); LYMPH # 1.6 10^3/uL (1.5-5.0); LYMPH % 18.3 % (24.0-44.0); MONO # 1.2 10^3/uL (0.0-0.8); MONO % 13.5 % (2.0-8.0); NEUTROPHILS # 5.5 10^3/uL (1.5-8.5); NEUTROPHILS % 62.9 % (36.0-66.0); PLATELET COUNT, AUTOMATED 230 10^3/uL (150-450)
[2025-07-24 07:31] LABS: ALT/SGPT 17 U/L (7.0-40); AST/SGOT 14 U/L (<34); C REACTIVE PROTEIN QUANTITATIV < 0.50 MG/DL (<1.0); CALCIUM LEVEL 9.3 MG/DL (8.3-10.6); CARBON DIOXIDE LEVEL 24 MMOL/L (20-31); CHLORIDE LEVEL 105 MMOL/L (98-107); CREATININE FOR GFR 1.58 MG/DL (0.70-1.30); GLOMERULAR FILTRATION RATE 42.6 (>35); POTASSIUM SERUM 4.6 MMOL/L (3.5-5.1); SODIUM LEVEL 143 MMOL/L (136-145)
[2025-07-24 07:52] LABS: KETONE, URINE AUTO RFX NEGATIVE (NEGATIVE); LEUKOCYTE ESTERASE UR AUTO RFX NEGATIVE (NEGATIVE); MUCUS, URINE RFX SMALL (NEGATIVE); NITRITE, URINE AUTO RFX NEGATIVE (NEGATIVE); RBC, URINE AUTO RFX 1 /HPF (0-3); SQUAM EPITHELIAL CELL UR AURFX 0 /HPF (0-6); WBC, URINE AUTO RFX 0 /HPF (0-3)
[2025-07-24] MEDS ORDERED: ISOVUE-370 76% 100 ML VIAL As Ordered ONE (07:53)
[2025-07-24] MEDS ORDERED: FEXO-63 PO (10:31)
[2025-07-24] MEDS ORDERED: KETO5DRO32 OD (10:31)
[2025-07-24] MEDS ORDERED: CARV3.12 PO (10:31)
[2025-07-24] MEDS ORDERED: GABA-1172 PO (10:31)
[2025-07-24] MEDS ORDERED: TRIA0.5O TOP (10:31)
[2025-07-24] MEDS ORDERED: MECL25CH45 PO (10:31)
[2025-07-24] MEDS ORDERED: VITA1TAB82 PO (10:31)
[2025-07-24] MEDS ORDERED: TRAM50TA2 PO (10:31)
[2025-07-24] MEDS ORDERED: ASPI81TA26 PO (10:31)
[2025-07-24] MEDS ORDERED: AMMO12CR4 TOP (10:31)
[2025-07-24] MEDS ORDERED: OPTI0.5D2 OU (10:31)
[2025-07-24] MEDS ORDERED: HOME MED LIST COMPLETE! XX SCH (10:35)
[2025-07-24] MEDS ORDERED: GLUCOSE 4 GM CHEW PO PRN (12:25)
[2025-07-24] MEDS ORDERED: DEXTROSE 50% 50 ML SYRINGE IV PRN (12:25)
[2025-07-24] MEDS ORDERED: GLUCAGON INJ 1 MG VIAL SC PRN (12:25)
[2025-07-24] MEDS: INSULIN LISPRO (NovoLOG) PER UNIT SC SCH ×2 (13:23→20:32)
[2025-07-24] MEDS: ROSUVASTATIN 10 MG TAB PO SCH (13:24)
[2025-07-24] MEDS: KETOROLAC 0.5% OPHTH SOLN OD SCH (15:33)
[2025-07-24 16:05] VITALS: BP 142/68; TEMP 98.2; O2SAT 98
[2025-07-24 20:15] VITALS: BP 178/62; TEMP 98.1; O2SAT 99
[2025-07-24] MEDS: GABAPENTIN 300 MG CAP PO SCH (20:29)
[2025-07-24 20:56] VITALS: BP 144/58
[2025-07-25 06:00] VITALS: BP 135/63; TEMP 98.9; O2SAT 94
[2025-07-25 07:08] LABS: PLATELET COUNT, AUTOMATED 234 10^3/uL (150-450)
[2025-07-25 07:37] LABS: CALCIUM LEVEL 8.8 MG/DL (8.3-10.6); CARBON DIOXIDE LEVEL 27.0 MMOL/L (20-31); CHLORIDE LEVEL 105.0 MMOL/L (98-107); CREATININE FOR GFR 1.71 MG/DL (0.70-1.30); GLOMERULAR FILTRATION RATE 38.7 (>35); MAGNESIUM LEVEL 2.3 MG/DL (1.8-2.4); POTASSIUM SERUM 4.4 MMOL/L (3.5-5.1); SODIUM LEVEL 142.0 MMOL/L (136-145)
[2025-07-25 12:00] VITALS: BP 132/58; TEMP 98.4; O2SAT 96
[2025-07-25] MEDS: MORPHINE 4 MG/ML 1 ML VIAL IV ONE (15:13)
[2025-07-25] MEDS: LIDOCAINE 5% PATCH TD ONE (15:13)
[2025-07-25 20:00] VITALS: BP 114/56; TEMP 98.3; O2SAT 96
[2025-07-25] MEDS: DICLOFENAC EPOLAMINE 1.3% PATCH TOP SCH (20:22)
[2025-07-26 04:00] VITALS: BP 110/76; TEMP 97.8; O2SAT 94
[2025-07-26 06:54] LABS: PLATELET COUNT, AUTOMATED 222 10^3/uL (150-450)
[2025-07-26 07:24] LABS: CALCIUM LEVEL 8.5 MG/DL (8.3-10.6); CARBON DIOXIDE LEVEL 27.0 MMOL/L (20-31); CHLORIDE LEVEL 105.0 MMOL/L (98-107); CREATININE FOR GFR 1.81 MG/DL (0.70-1.30); GLOMERULAR FILTRATION RATE 36.2 (>35); POTASSIUM SERUM 4.3 MMOL/L (3.5-5.1); SODIUM LEVEL 143.0 MMOL/L (136-145)
[2025-07-26] MEDS: PANTOPRAZOLE 40MG TAB PO SCH (10:00)
[2025-07-26] MEDS: ANALGESIC BALM CRM 3 OZ TOP SCH (10:01)
[2025-07-26 12:00] VITALS: BP 135/63; TEMP 97.9; O2SAT 95
[2025-07-26 19:38] VITALS: BP 136/62; TEMP 97.5; O2SAT 99
[2025-07-26 20:00] VITALS: BP 136/62; TEMP 97.5; O2SAT 99
[2025-07-26 20:35] VITALS: BP 136/62
[2025-07-27 03:21] VITALS: BP 128/60; TEMP 97.8; O2SAT 97
[2025-07-27] MEDS: MOM 30 ML SUSPENSION UDC PO ONE (03:32)
[2025-07-27 04:00] VITALS: BP 128/60; TEMP 97.8; O2SAT 97
[2025-07-27] MEDS ORDERED: TRAM50TA2 PO ×2 (10:54→11:39)
[2025-07-27 11:51] VITALS: BP 142/65; TEMP 97.2; O2SAT 97
== END 2025-07-27 15:11 | disposition home health service (06) ==
LOC: M ED 04:48 → M ED INP 04:49 → M MS4PR 15:20
PROVIDERS: ADMIT Student in an Organized Health Care Education/Training Program; ATTEND Student in an Organized Health Care Education/Training Program
DX: S70.12XA Contusion of left thigh, initial encounter (principal); M16.0 Bilateral primary osteoarthritis of hip; Z96.643 Presence of artificial hip joint, bilateral; I10 Essential (primary) hypertension; E78.5 Hyperlipidemia, unspecified; I48.91 Unspecified atrial fibrillation; W19.XXXA Unspecified fall, initial encounter; Y92.9 Unspecified place or not applicable; Y93.9 Activity, unspecified; E11.9 Type 2 diabetes mellitus without complications; Z87.891 Personal history of nicotine dependence; R29.6 Repeated falls; Z79.82 Long term (current) use of aspirin; Z79.84 Long term (current) use of oral hypoglycemic drugs; Z79.899 Other long term (current) drug therapy; Z91.048 Other nonmedicinal substance allergy status
CPT/HCPCS: 36415; 72131; 73521; 74177; 76705; 76857; 80048; 80076; 81001; 83605; 83690; 83735; 85025; 85027; 85652; 86140; 93005; 93041; 96374; 96375; 96376; 97116; 97161; 97165; 97530; 99285; G0378; J1815; J2405; Q9967

== ENCOUNTER 2025-08-17 16:02 | Emergency (ER) | payer OTHER ==
[~2025-08-17] VITALS: Ht 175.3 cm; Wt 77.4 kg
[~2025-08-17 16:02] MED LIST changes: +AMMO12CR4 TOP; +ASPI81TA26 PO; +FEXO-63 PO; +KETO5DRO32 OD; +MECL25CH45 PO; +OPTI0.5D2 OU; +TRAM50TA2 PO; +TRIA0.5O TOP; +VITA1TAB82 PO
[2025-08-17 16:59] LABS: BASO # 0.1 10^3/uL (0.0-0.2); BASO % 0.8 % (0.0-1.0); EOS # 0.1 10^3/uL (0.0-0.5); EOS % 1.5 % (0.0-3.0); LYMPH # 1.5 10^3/uL (1.5-5.0); LYMPH % 18.0 % (24.0-44.0); MONO # 1.0 10^3/uL (0.0-0.8); MONO % 11.8 % (2.0-8.0); NEUTROPHILS # 5.8 10^3/uL (1.5-8.5); NEUTROPHILS % 67.4 % (36.0-66.0); PLATELET COUNT, AUTOMATED 248 10^3/uL (150-450)
[2025-08-17 17:24] LABS: CK-MB VALUE MASS 2.2 NG/ML (<3.6)
[2025-08-17 17:25] LABS: CPK CREATINE PHOSPHOKINASE 32.0 U/L (46-171); MB/CK RELATIVE INDEX 6.87 (< OR =4)
[2025-08-17 17:26] LABS: ALT/SGPT 16.0 U/L (7.0-40); AST/SGOT 15.0 U/L (<34); CALCIUM LEVEL 8.9 MG/DL (8.3-10.6); CARBON DIOXIDE LEVEL 22.0 MMOL/L (20-31); CHLORIDE LEVEL 108.0 MMOL/L (98-107); CREATININE FOR GFR 1.54 MG/DL (0.70-1.30); GLOMERULAR FILTRATION RATE 43.9 (>35); POTASSIUM SERUM 4.2 MMOL/L (3.5-5.1); SODIUM LEVEL 145.0 MMOL/L (136-145)
[2025-08-17 18:50] LABS: CK-MB VALUE MASS 2.3 NG/ML (<3.6)
[2025-08-17 18:55] LABS: CPK CREATINE PHOSPHOKINASE 32.0 U/L (46-171); MB/CK RELATIVE INDEX 7.18 (< OR =4)
[2025-08-17] MEDS: ASPIRIN 81 MG CHEWABLE TABLET PO ONE (20:25)
[2025-08-17] MEDS: ACETAMINOPHEN *IV* 1,000 MG in IV 1 EA IV ONE (20:25)
[2025-08-17] MEDS ORDERED: ISOVUE-370 76% 100 ML VIAL As Ordered ONE (20:33)
[2025-08-18 01:52] VITALS: O2SAT 96
[2025-08-18] MEDS: FAMOTIDINE 20 MG TAB PO ONE (08:40)
[2025-08-18 08:42] VITALS: BP 159/95; TEMP 97.9; O2SAT 98
== END 2025-08-18 09:03 | disposition home or self-care (01) ==
LOC: M ED 16:02
DX: R07.9 Chest pain, unspecified (principal); R53.1 Weakness; E11.9 Type 2 diabetes mellitus without complications; I10 Essential (primary) hypertension; Z86.79 Personal history of other diseases of the circulatory system; Z96.643 Presence of artificial hip joint, bilateral; Z91.09 Other allergy status, other than to drugs and biological substances; Z79.82 Long term (current) use of aspirin; Z79.899 Other long term (current) drug therapy; Z79.4 Long term (current) use of insulin
CPT/HCPCS: 71045; 71275; 80048; 80076; 82550; 82553; 83605; 83690; 83880; 84145; 84484; 85025; 87486; 87581; 87633; 87798; 93005; 93041; 94760; 96374; 99285; J0134; Q9967